=== PATIENT | female | born 1935 | race African-American/Black ===

== ENCOUNTER 2022-03-18 16:19 | Observation (INO) | payer OTHER ==
[~2022-03-18] VITALS: Ht 170.2 cm; Wt 108.9 kg
[2022-03-18 19:17] LABS: Basophils # (auto) 0.1 10 ^3/uL (0-0.2); Basophils % (auto) 1.1 % (0.0-2.0); Eosinophils # (auto) 0.1 10 ^3/uL (0-0.8); Eosinophils % (auto) 1.8 % (0.0-7.0); Hematocrit 32.6 % (36.0-46.0); Hemoglobin 10.5 g/dL (12.2-16.2); Lymphocytes # (auto) 1.1 10 ^3/uL (0.4-5.4); Lymphocytes % (auto) 23.4 % (10.0-50.0); Mean Corpuscular Hemoglobin 31.8 pg (28.0-32.0); Mean Corpuscular Hgb Conc. 32.3 g/dL (32.0-36.0); Mean Corpuscular Volume 98.4 fL (80.0-100.0); Monocytes # (auto) 0.6 10 ^3/uL (0-1.3); Monocytes % (auto) 12.3 % (0.0-12.0); Neutrophils # (auto) 2.9 10 ^3/uL (1.6-8.6); Neutrophils % (auto) 61.4 % (37.0-80.0); Nucleated Red Blood Cells % 0.1 %; Red Blood Cells 3.31 10^6/uL (4.0-5.20); Red Cell Distribution Width 16.3 % (11.8-14.3); White Blood Cell 4.6 10^3/uL (4.4-10.8)
[2022-03-18 19:48] LABS: Albumin 3.1 g/dL (3.4-5.0); BUN/Creatinine Ratio 19.8; Calcium 9.1 mg/dL (8.5-10.1); Magnesium 2.2 mg/dL (1.6-2.6); Potassium 3.8 mmol/L (3.5-5.1)
[2022-03-18 19:51] LABS: Bilirubin, Total 0.8 mg/dL (0.2-1.0)
[2022-03-18] MEDS ORDERED: CLINDAMYCIN 600MG IV 50 ML IV ONE (20:15)
[2022-03-18] MEDS ORDERED: ONDANSETRON HCL 4 MG/2 ML VIAL IV ONE (20:45)
[2022-03-18] MEDS ORDERED: MORPHINE SULFATE 4 MG/ML SYR/VIAL IV ONE (20:45)
[2022-03-18] MEDS ORDERED: NITROGLYCERIN 0.4 MG SL TAB SL PRN (22:45)
[2022-03-18] MEDS ORDERED: VANCOMYCIN PER PHARMACY 0 MG IV SCH (22:45)
[2022-03-18] MEDS ORDERED: MORPHINE SULFATE INJ 2 MG/ml SYRG IV PRN (22:45)
[2022-03-18] MEDS ORDERED: VANCOMYCIN 1GM/250ML 250 ML IV ONE (23:00)
[2022-03-18] MEDS ORDERED: DEXTROSE (50%) 50ML SYRG IV PRN (23:00)
[2022-03-18] MEDS: PIPERACILLIN-TAZOB 2.25GM 50 ML IV SCH (23:18)
[2022-03-19 04:12] LABS: Basophils # (auto) 0.1 10 ^3/uL (0-0.2); Basophils % (auto) 1.4 % (0.0-2.0); Eosinophils # (auto) 0 10 ^3/uL (0-0.8); Hematocrit 30.4 % (36.0-46.0); Lymphocytes # (auto) 1.2 10 ^3/uL (0.4-5.4); Mean Corpuscular Hgb Conc. 32.9 g/dL (32.0-36.0); Mean Corpuscular Volume 97.3 fL (80.0-100.0); Monocytes # (auto) 0.7 10 ^3/uL (0-1.3); Monocytes % (auto) 15.9 % (0.0-12.0); Neutrophils # (auto) 2.3 10 ^3/uL (1.6-8.6); Neutrophils % (auto) 53.7 % (37.0-80.0); Nucleated Red Blood Cells % 0.1 %; Red Blood Cells 3.12 10^6/uL (4.0-5.20); Red Cell Distribution Width 16.4 % (11.8-14.3); White Blood Cell 4.3 10^3/uL (4.4-10.8)
[2022-03-19 04:31] LABS: Albumin 2.8 g/dL (3.4-5.0); BUN/Creatinine Ratio 21.9; Calcium 8.8 mg/dL (8.5-10.1); Potassium 3.9 mmol/L (3.5-5.1)
[2022-03-19 04:34] LABS: Bilirubin, Total 0.7 mg/dL (0.2-1.0); Total Protein 5.9 g/dL (6.4-8.2)
[2022-03-19] MEDS: PIPERACILLIN-TAZOB 2.25GM 50 ML IV SCH ×2 (06:10→14:15)
[2022-03-19] MEDS: FUROSEMIDE 40 MG/4 ML VIAL IV SCH ×2 (06:10→14:16)
[2022-03-19] MEDS: ACCU-CHEK COMFORT CURVE STRIP VI SCH ×2 (07:40→12:18)
[2022-03-19] MEDS: InsuLIN REG 1unit/0.01ml Soln (100units/ml) SC SCH ×2 (07:46→12:19)
[2022-03-19 08:43] VITALS: BP 128/45
[2022-03-19] MEDS ORDERED: ENOXAPARIN SOD 40 MG/0.4 ML SYRINGE SC SCH (10:00)
[2022-03-19 11:30] LABS: Urine Bacteria MOD /hpf (None Seen); Urine Blood TRACE /uL (Negative); Urine Mucus FEW (None Seen); Urine Specific Gravity 1.008 (1.001-1.035); Urine WBC 182 /hpf (0 - 5)
[2022-03-19] MEDS ORDERED: VANCOMYCIN 1GM/250ML 250 ML IV ONE (12:30)
[2022-03-19 13:00] VITALS: BP 128/45
[2022-03-19] MEDS ORDERED: CARV3.1240 PO (14:38)
[2022-03-19] MEDS ORDERED: TRAZ100T3 PO (14:38)
[2022-03-19] MEDS ORDERED: SITA100T7 PO (14:38)
[2022-03-19] MEDS ORDERED: CHOL20007 PO (14:38)
[2022-03-19] MEDS ORDERED: DILT-29 PO (14:38)
[2022-03-19] MEDS ORDERED: ACET300T2 PO (14:38)
[2022-03-19] MEDS ORDERED: FER325T PO (14:38)
[2022-03-19] MEDS ORDERED: SIMV10TA84 PO (14:38)
[2022-03-19] MEDS ORDERED: POTA10TA51 PO (14:38)
[2022-03-19] MEDS ORDERED: PIOG15TA25 PO ×2 (14:38→14:39)
[2022-03-19] MEDS ORDERED: CEPH-322 PO (16:23)
[2022-03-19 17:00] VITALS: BP 130/47
[2022-03-19 17:48] VITALS: BP 128/45
== END 2022-03-19 20:05 | disposition home or self-care (01) ==
LOC: ER 16:19 → EDBD 16:19 → TELE 22:39 → TELE-WESTW 03-19 08:58
PROVIDERS: ADMIT Internal Medicine; ATTEND Internal Medicine
DX: I13.0 Hypertensive heart and chronic kidney disease with heart failure and stage 1 through stage 4 chronic kidney disease, or unspecified chronic kidney disease (principal); Z20.822 Contact with and (suspected) exposure to COVID-19; E11.22 Type 2 diabetes mellitus with diabetic chronic kidney disease; I50.9 Heart failure, unspecified; N18.9 Chronic kidney disease, unspecified; L03.115 Cellulitis of right lower limb; L03.116 Cellulitis of left lower limb; L30.9 Dermatitis, unspecified; E78.5 Hyperlipidemia, unspecified; E66.01 Morbid (severe) obesity due to excess calories; Z79.899 Other long term (current) drug therapy
CPT/HCPCS: 36415; 71045; 80053; 80202; 81001; 82962; 83735; 83880; 84484; 85025; 85652; 87426; 93005; 93306; 93970; 96365; 96366; 96367; 96368; 96372; 96375; 96376; 99291; G0378; J1650; J1815; J1940; J2270; J2405; J2543; J3370; J3490

== ENCOUNTER 2023-06-15 13:12 | Observation (INO) | payer OTHER ==
[~2023-06-15] VITALS: Ht 167.6 cm; Wt 71.2 kg
[~2023-06-15 13:12] MED LIST: ACET300T51 PO; CARV3.1240 PO; CEPH250C PO; CHOL20007 PO; DILT-29 PO; FER325T PO; PIOG15TA25 PO; POTA10TA51 PO; SIMV10TA20 PO; SITA100T7 PO; TRAZ-228 PO
[2023-06-15 14:52] LABS: Basophils # (auto) 0 10 ^3/uL (0-0.2); Basophils % (auto) 0.5 % (0.0-2.0); Eosinophils # (auto) 0 10 ^3/uL (0-0.8); Eosinophils % (auto) 0.3 % (0.0-7.0); Hematocrit 38.9 % (36.0-46.0); Lymphocytes # (auto) 0.7 10 ^3/uL (0.4-5.4); Lymphocytes % (auto) 9.1 % (10.0-50.0); Mean Corpuscular Hemoglobin 33.2 pg (28.0-32.0); Mean Corpuscular Hgb Conc. 33.5 g/dL (32.0-36.0); Monocytes # (auto) 0.8 10 ^3/uL (0-1.3); Monocytes % (auto) 10.6 % (0.0-12.0); Neutrophils # (auto) 6.3 10 ^3/uL (1.6-8.6); Neutrophils % (auto) 79.5 % (37.0-80.0); Nucleated Red Blood Cells % 0.2 %; Red Blood Cells 3.93 10^6/uL (4.0-5.20); Red Cell Distribution Width 14.7 % (11.8-14.3); White Blood Cell 7.9 10^3/uL (4.4-10.8)
[2023-06-15 15:05] LABS: Albumin 4.2 g/dL (3.2-4.8); Alkaline Phosphatase 65 U/L (46-116); Anion Gap 9 (5-15); Aspartate Aminotransferase 29 U/L (13-40); BUN/Creatinine Ratio 35.5 (10.0-20.0); Bilirubin, Total 0.7 mg/dL (0.2-1.0); Blood Urea Nitrogen 54 mg/dL (9-23); Calcium 8.8 mg/dL (8.7-10.4); Carbon Dioxide 25 mmol/L (20-30); Chloride 103 mmol/L (98-107); Glucose 144 mg/dL (74-106); Potassium 4.3 mmol/L (3.5-5.1); Sodium 137 mmol/L (136-145); Total Protein 7.6 g/dL (5.7-8.2)
[2023-06-15 15:10] LABS: Alanine Aminotransferase 9 U/L (7-40)
[2023-06-15] MEDS ORDERED: SODIUM CHLORIDE 0.9% 1,650 ML IV ONE ×2 (15:30→16:45)
[2023-06-15] MEDS ORDERED: ASPirin 325 MG TAB PO ONE (16:30)
[2023-06-15] MEDS ORDERED: dilTIAZem 25 MG/5 ML VIAL IV ONE (16:30)
[2023-06-15] MEDS ORDERED: VANCOMYCIN 1GM/250ML 250 ML IV ONE (16:45)
[2023-06-15] MEDS ORDERED: PIPERACILLIN-TAZO 4.5GM 100 ML IV ONE (16:45)
[2023-06-15 17:13] LABS: Free T3 2.38 pg/mL (2.3-4.2)
[2023-06-15 17:32] VITALS: PULSE 115; RESP 16; O2SAT 100
[2023-06-15 17:32] LABS: Urine Bacteria NONE SEEN /hpf (None Seen); Urine Blood 1+ /uL (Negative); Urine Clarity CLOUDY (Clear); Urine Color Yellow (Yellow); Urine Protein, UAD 1+ (Negative); Urine Specific Gravity 1.014 (1.001-1.035); Urine Urobilinogen Normal (Negative); Urine WBC 1362 /hpf (0 - 5); Urine WBC Clumps PRESENT /hpf (None Seen)
[2023-06-15 18:55] LABS: INR 1.21 (0.9-1.15); Prothrombin Time 12.5 sec (9.3-11.8)
[2023-06-15 19:09] LABS: Free T4 (Free Thyroxine) 1.28 ng/dL (0.89-1.76)
[2023-06-15 19:23] LABS: Rapid Strep A Screen-Throat Negative
[2023-06-15 19:31] LABS: COVID19 ANTIGEN SOFIA FIA NEGATIVE (NEGATIVE)
[2023-06-15] MEDS ORDERED: NITROGLYCERIN 0.4 MG SL TAB SL PRN (20:15)
[2023-06-15] MEDS ORDERED: ACETAMINOPHEN 325 MG TAB PO PRN (20:15)
[2023-06-15] MEDS ORDERED: MORPHINE SULFATE INJ 2 MG/ml SYRG IV PRN (20:15)
[2023-06-15] MEDS ORDERED: METOPROLOL TARTRATE 1MG/1ML-5ML VIAL IV PRN (20:15)
[2023-06-15] MEDS ORDERED: DEXTROSE (50%) 50ML SYRG IV PRN (20:30)
[2023-06-15] MEDS: InsuLIN REG 1unit/0.01ml Soln (100units/ml) SC SCH (22:00)
[2023-06-15] MEDS: ACCU-CHEK COMFORT CURVE STRIP VI SCH (22:04)
[2023-06-15] MEDS: SODIUM CHLOR 0.9% PF (SALINE LOCK) 10ML VIAL/SYR IV SCH (22:04)
[2023-06-15] MEDS: ENOXAPARIN SOD 30 MG/0.3 ML SYRINGE SC SCH (22:09)
[2023-06-16 05:17] LABS: Basophils # (auto) 0 10 ^3/uL (0-0.2); Basophils % (auto) 0.6 % (0.0-2.0); Eosinophils # (auto) 0.1 10 ^3/uL (0-0.8); Eosinophils % (auto) 1.1 % (0.0-7.0); Hematocrit 31.3 % (36.0-46.0); Hemoglobin 10.6 g/dL (12.2-16.2); Lymphocytes # (auto) 1.2 10 ^3/uL (0.4-5.4); Lymphocytes % (auto) 19.8 % (10.0-50.0); Mean Corpuscular Hemoglobin 33.8 pg (28.0-32.0); Mean Corpuscular Hgb Conc. 33.8 g/dL (32.0-36.0); Mean Corpuscular Volume 99.9 fL (80.0-100.0); Monocytes # (auto) 0.9 10 ^3/uL (0-1.3); Monocytes % (auto) 14.5 % (0.0-12.0); Nucleated Red Blood Cells % 0.2 %; Red Blood Cells 3.14 10^6/uL (4.0-5.20); Red Cell Distribution Width 14.8 % (11.8-14.3); White Blood Cell 6.2 10^3/uL (4.4-10.8)
[2023-06-16 05:26] LABS: Albumin 3.4 g/dL (3.2-4.8); Alkaline Phosphatase 55 U/L (46-116); Anion Gap 6 (5-15); Aspartate Aminotransferase 20 U/L (13-40); Calcium 8.1 mg/dL (8.7-10.4); Carbon Dioxide 24 mmol/L (20-30); Chloride 106 mmol/L (98-107); Glucose 112 mg/dL (74-106); Magnesium 1.8 mg/dL (1.6-2.6); Potassium 4.3 mmol/L (3.5-5.1); Sodium 136 mmol/L (136-145)
[2023-06-16 05:27] LABS: Bilirubin, Total 0.7 mg/dL (0.2-1.0); Total Protein 6.3 g/dL (5.7-8.2)
[2023-06-16 05:46] LABS: Alanine Aminotransferase < 9 U/L (7-40); Blood Urea Nitrogen 36 mg/dL (9-23)
[2023-06-16] MEDS: SODIUM CHLOR 0.9% PF (SALINE LOCK) 10ML VIAL/SYR IV SCH ×3 (06:01→21:35)
[2023-06-16] MEDS: ACCU-CHEK COMFORT CURVE STRIP VI SCH ×4 (06:31→21:43)
[2023-06-16] MEDS: InsuLIN REG 1unit/0.01ml Soln (100units/ml) SC SCH ×4 (06:31→21:43)
[2023-06-16 07:25] VITALS: PULSE 124; RESP 16; O2SAT 97
[2023-06-16 10:31] VITALS: BP 105/69; PULSE 116; RESP 19; TEMP 97; O2SAT 97
[2023-06-16] MEDS ORDERED: CINA30TA14 PO (10:45)
[2023-06-16] MEDS ORDERED: GAB100C PO (10:45)
[2023-06-16] MEDS: ENOXAPARIN SOD 30 MG/0.3 ML SYRINGE SC SCH (10:55)
[2023-06-16] MEDS ORDERED: FUROSEMIDE 40 MG/4 ML VIAL IV ONE (11:30)
[2023-06-16] MEDS ORDERED: ALBUMIN 5% 250 ML IV ONE (11:30)
[2023-06-16] MEDS ORDERED: DILT120C41 PO (11:44)
[2023-06-16] MEDS ORDERED: FURO80TA3 PO (11:44)
[2023-06-16] MEDS ORDERED: DIGOXIN (250MCG/ML) 2 ML AMPULE IV ONE (12:00)
[2023-06-16 13:00] VITALS: BP 104/56; PULSE 111; RESP 19; TEMP 98; O2SAT 93
[2023-06-16] MEDS ORDERED: THROAT LOZENGES(CEPASTAT) MT PRN (13:30)
[2023-06-16] MEDS: ACETAMINOPHEN/CODEINE#3 (300/30mg) TAB PO SCH ×2 (14:26→21:31)
[2023-06-16 17:00] VITALS: BP 107/51; PULSE 74; RESP 18; RESP 19; TEMP 97.9; O2SAT 95; O2SAT 96
[2023-06-16] MEDS: traZODone HCL 50 MG TAB PO SCH (17:57)
[2023-06-16] MEDS ORDERED: PRAVASTATIN SODIUM 20 MG TAB PO SCH (18:00)
[2023-06-16 20:00] VITALS: BP 101/54; PULSE 115; PULSE 94; RESP 16; TEMP 98; O2SAT 95
[2023-06-16] MEDS: CARVEDILOL 3.125 MG TAB PO SCH (21:33)
[2023-06-17] MEDS: traZODone HCL 50 MG TAB PO SCH (00:27)
[2023-06-17 05:00] VITALS: BP 118/56; PULSE 91; RESP 16; TEMP 98; O2SAT 97
[2023-06-17] MEDS: SODIUM CHLOR 0.9% PF (SALINE LOCK) 10ML VIAL/SYR IV SCH ×2 (06:00→12:26)
[2023-06-17] MEDS: ACETAMINOPHEN/CODEINE#3 (300/30mg) TAB PO SCH ×2 (06:41→14:00)
[2023-06-17] MEDS: ACCU-CHEK COMFORT CURVE STRIP VI SCH ×2 (06:43→12:26)
[2023-06-17] MEDS: InsuLIN REG 1unit/0.01ml Soln (100units/ml) SC SCH ×2 (06:48→12:25)
[2023-06-17 08:30] VITALS: BP 116/55; PULSE 101; PULSE 103; PULSE 110; RESP 16; RESP 18; TEMP 98.7; O2SAT 95; O2SAT 96
[2023-06-17 09:47] LABS: Basophils # (auto) 0.1 10 ^3/uL (0-0.2); Basophils % (auto) 0.8 % (0.0-2.0); Eosinophils # (auto) 0.1 10 ^3/uL (0-0.8); Eosinophils % (auto) 1.5 % (0.0-7.0); Hematocrit 31.6 % (36.0-46.0); Hemoglobin 10.6 g/dL (12.2-16.2); Lymphocytes # (auto) 1.3 10 ^3/uL (0.4-5.4); Lymphocytes % (auto) 20.7 % (10.0-50.0); Mean Corpuscular Hgb Conc. 33.6 g/dL (32.0-36.0); Mean Corpuscular Volume 101.4 fL (80.0-100.0); Monocytes # (auto) 0.9 10 ^3/uL (0-1.3); Monocytes % (auto) 13.6 % (0.0-12.0); Neutrophils # (auto) 4.1 10 ^3/uL (1.6-8.6); Neutrophils % (auto) 63.4 % (37.0-80.0); Nucleated Red Blood Cells % 0.2 %; Red Blood Cells 3.12 10^6/uL (4.0-5.20); Red Cell Distribution Width 14.8 % (11.8-14.3); White Blood Cell 6.4 10^3/uL (4.4-10.8)
[2023-06-17] MEDS: ENOXAPARIN SOD 30 MG/0.3 ML SYRINGE SC SCH (10:00)
[2023-06-17] MEDS ORDERED: dilTIAZem 120MG ER CAP PO SCH (10:00)
[2023-06-17] MEDS ORDERED: FERROUS SULFATE 325mg EC TAB PO SCH (10:00)
[2023-06-17 10:31] LABS: Alkaline Phosphatase 50 U/L (46-116)
[2023-06-17 10:32] LABS: Albumin 3.6 g/dL (3.2-4.8); Anion Gap 7 (5-15); Aspartate Aminotransferase 25 U/L (13-40); BUN/Creatinine Ratio 20.8 (10.0-20.0); Bilirubin, Total 0.6 mg/dL (0.2-1.0); Blood Urea Nitrogen 31 mg/dL (9-23); Calcium 8.4 mg/dL (8.7-10.4); Carbon Dioxide 27 mmol/L (20-30); Chloride 104 mmol/L (98-107); Glucose 156 mg/dL (74-106); Magnesium 1.8 mg/dL (1.6-2.6); Potassium 4.5 mmol/L (3.5-5.1); Sodium 138 mmol/L (136-145); Total Protein 6.4 g/dL (5.7-8.2)
[2023-06-17] MEDS: CARVEDILOL 3.125 MG TAB PO SCH (10:39)
[2023-06-17 11:08] LABS: Alanine Aminotransferase < 9 U/L (7-40)
[2023-06-17 12:30] VITALS: BP 110/54; PULSE 73; RESP 18; TEMP 97.7; O2SAT 99
[2023-06-17] MEDS ORDERED: APIX2.5T PO ×3 (13:31→13:36)
[2023-06-17] MEDS ORDERED: CARV3.1240 PO ×3 (13:31→13:36)
[2023-06-17] MEDS ORDERED: DILT120T16 PO (13:36)
[2023-06-17] MEDS ORDERED: FURO1TAB32 PO (13:51)
[2023-06-17 17:00] VITALS: BP 113/68; PULSE 64; RESP 18; TEMP 98.3; O2SAT 96
== END 2023-06-17 16:46 | disposition home or self-care (01) ==
LOC: EDBD 13:12 → ER 13:12 → EDUNIT# 13:12 → TELE 20:05 → TELE-WESTW 06-16 10:14 → INTOOBSV 06-17 09:04 → OBSVTOIN 06-17 09:04
PROVIDERS: ADMIT Student in an Organized Health Care Education/Training Program; ATTEND Student in an Organized Health Care Education/Training Program
DX: I48.20 Chronic atrial fibrillation, unspecified (principal); Z20.822 Contact with and (suspected) exposure to COVID-19; S06.0XAA Concussion with loss of consciousness status unknown, initial encounter; I13.0 Hypertensive heart and chronic kidney disease with heart failure and stage 1 through stage 4 chronic kidney disease, or unspecified chronic kidney disease; E11.22 Type 2 diabetes mellitus with diabetic chronic kidney disease; I50.9 Heart failure, unspecified; N18.9 Chronic kidney disease, unspecified; N17.9 Acute kidney failure, unspecified; J02.9 Acute pharyngitis, unspecified; E78.5 Hyperlipidemia, unspecified; I21.4 Non-ST elevation (NSTEMI) myocardial infarction; E04.1 Nontoxic single thyroid nodule; Z79.899 Other long term (current) drug therapy; W19.XXXA Unspecified fall, initial encounter; Y93.89 Activity, other specified; Y92.89 Other specified places as the place of occurrence of the external cause; Y99.8 Other external cause status
CPT/HCPCS: 36415; 70450; 71045; 72125; 80053; 81001; 82550; 82962; 83605; 83735; 83880; 84439; 84443; 84481; 84484; 85025; 85610; 86308; 87040; 87070; 87426; 87880; 93005; 93306; 93970; 96365; 96366; 96367; 96368; 96372; 96375; 97110; 97116; 97163; 97530; 99285; G0378; J1160; J1650; J1815; J1940; J2543; J3370; J7030; P9045